=== PATIENT | male | born 1940 | race Caucasian/White ===

== ENCOUNTER → 2018-10-24 | Outpatient (CLI) | payer OTHER, SELFPAY ==
[~2018-10-24] MED LIST: ASPI325EC PO; DONE10; PRED1 PO; Questran4 GM PO
== END | disposition home or self-care (01) ==
LOC: PLD 15:53 → LAB SHORT 15:53
DX: B35.1 Tinea unguium (principal)
CPT/HCPCS: 88305; 88312

== ENCOUNTER 2020-11-03 08:07 | Day surgery (SDC) | payer OTHER ==
[~2020-11-03] VITALS: Ht 167.6 cm; Wt 50.2 kg
== END 2020-11-03 10:02 | disposition home or self-care (01) ==
LOC: ORSCSDS 08:07
PROVIDERS: Surgery
PROC: 0DJD8ZZ Inspection of Lower Intestinal Tract, Via Natural or Artificial Opening Endoscopic (ICD-10-PCS; principal; 2020-11-03 09:15)
DX: R19.7 Diarrhea, unspecified (principal); Z86.010 Personal history of colon polyps; Z79.899 Other long term (current) drug therapy
CPT/HCPCS: J2704; J7120

== ENCOUNTER → 2024-11-05 | Outpatient (CLI) | payer OTHER ==
[2024-11-05 13:14] LABS: Source, Urine Clean Catch
[2024-11-05 18:30] LABS: Bilirubin, Urine Neg (Neg); Color, Urine Yellow (P-Yellow); Glucose Qualitative, Urine Neg (Neg); Ketones, Urine Neg (Neg); Leukocyte Esterase, Urine Neg (Neg); Protein, Urine 2+ (Neg); Specific Gravity, Urine 1.020 (1.003-1.022); Urobilinogen, Urine NORM (Normal)
[2024-11-05 19:06] LABS: White Blood Cells, Urine 0-2 /hpf (0-5)
== END | disposition home or self-care (01) ==
LOC: LAB SHORT 13:12 → LAB 13:12
PROVIDERS: Internal Medicine
DX: R41.0 Disorientation, unspecified (principal); R30.0 Dysuria
CPT/HCPCS: 81001

== ENCOUNTER 2024-11-16 19:54 | Emergency (ER) | payer OTHER ==
[~2024-11-16] VITALS: Ht 167.6 cm; Wt 52.6 kg
[2024-11-16 22:55] VITALS: BP 121/63
== END 2024-11-16 22:55 | disposition home or self-care (01) ==
LOC: ER 19:54
DX: S01.112A Laceration without foreign body of left eyelid and periocular area, initial encounter (principal); S51.812A Laceration without foreign body of left forearm, initial encounter; W19.XXXA Unspecified fall, initial encounter; Z79.899 Other long term (current) drug therapy; Z88.0 Allergy status to penicillin; Z88.2 Allergy status to sulfonamides; Z88.8 Allergy status to other drugs, medicaments and biological substances
CPT/HCPCS: 12013; 70450; 73110; 93005; 93010; 99284-25